=== PATIENT | female | born 1970 | race African-American/Black ===

== ENCOUNTER 2021-11-24 18:28 | Emergency (ER) | payer MEDICAID ==
[~2021-11-24] VITALS: Ht 165.1 cm; Wt 88.0 kg
[2021-11-24] MEDS: ACETAMINOPHEN 325MG TABLET PO STA (23:06)
[2021-11-24] MEDS: ONDANSETRON 4MG ODT PO STA (23:06)
[2021-11-24] MEDS: KETOROLAC 60MG/2ML VIAL IM STA (23:06)
[2021-11-24 23:35] LABS: CLARITY URINE CLEAR (CLEAR); COLOR URINE YELLOW (YELLOW); KETONES URINE TRACE (NEGATIVE); LEUKOCYTE ESTERASE URINE NEGATIVE (NEGATIVE); NITRITE URINE NEGATIVE (NEGATIVE); OCCULT BLOOD URINE 1+ (NEGATIVE); PH URINE 5.5 (4.5-8.0); PROTEIN URINE TRACE (NEGATIVE); SPECIFIC GRAVITY URINE 1.029 (1.005-1.030)
[2021-11-25 01:47] VITALS: BP 14/60
[2021-11-25] MEDS ORDERED: DOXY-326 MT (01:49)
[2021-11-25] MEDS ORDERED: DOXYCYCLINE HYCLATE 100MG CAPSULE PO NR (02:00)
== END 2021-11-25 02:16 | disposition home or self-care (01) ==
LOC: ER 18:28
DX: J18.9 Pneumonia, unspecified organism (principal); I10 Essential (primary) hypertension; Z20.822 Contact with and (suspected) exposure to COVID-19; M32.9 Systemic lupus erythematosus, unspecified
CPT/HCPCS: 71045; 81003; 81025; 87426; 87804; 96372; 99284; C9803; J1885; Q0162; U0003; U0005

== ENCOUNTER 2022-03-11 11:17 | Emergency (ER) | payer MEDICAID, OTHER ==
[~2022-03-11] VITALS: Ht 165.1 cm; Wt 85.0 kg
[~2022-03-11 11:17] MED LIST: DOXY-326 MT
[2022-03-11] MEDS ORDERED: NITROGLYCERIN 0.4MG TABLET SL SL PRN (12:30)
[2022-03-11] MEDS ORDERED: ASPIRIN 81MG TABLET PO ONE (12:30)
[2022-03-11 12:41] LABS: EOSINOPHILS % 1.3 % (0.0-5.0); HEMATOCRIT. 35.8 % (36.0-48.0); HEMOGLOBIN. 12.1 g/dL (12.0-16.0); LYMPHOCYTES % 31.8 % (20.0-50.0); MEAN CORPUSCULAR HEMOGLOBIN 28.8 pg (28.0-32.0); MEAN CORPUSCULAR VOLUME 85.3 fL (81.0-99.0); MEAN PLATELET VOLUME 7.5 fl (7.4-10.4); MONOCYTES % 6.7 % (2.0-8.0); NEUTROPHILS % 59.2 % (40.0-76.0); PLATELET 330 x1000/uL (130-400); RED BLOOD CELL COUNT 4.19 mill/uL (4.2-5.4); RED CELL DISTRIBUTION WIDTH 15.6 % (11.6-14.6)
[2022-03-11 12:47] LABS: CHLORIDE 106 mEq/L (98-107)
[2022-03-11 15:35] VITALS: BP 149/73
== END 2022-03-11 16:30 | disposition short-term general hospital (02) ==
LOC: ER 11:17
DX: R07.89 Other chest pain (principal); R55 Syncope and collapse; I10 Essential (primary) hypertension; Z98.890 Other specified postprocedural states
CPT/HCPCS: 36415; 71045; 80053; 83880; 84443; 84484; 85025; 85379; 93005; 99285